=== PATIENT | female | born 1960 | race Caucasian/White ===

== ENCOUNTER 2019-09-15 23:59 | Emergency (ER) | payer BC, OTHER ==
[~2019-09-15] VITALS: Ht 172.7 cm; Wt 109.0 kg
[2019-09-16 00:03] VITALS: BP 123/77
[2019-09-16] MEDS ORDERED: AZITHROMYCIN 250 MG TABLET ONE (00:22)
[2019-09-16] MEDS ORDERED: AZITHROMYCIN 500 MG TABLET PO ONE (00:30)
== END 2019-09-16 00:47 | disposition home or self-care (01) ==
LOC: ED 09-16 00:40
DX: M94.0 Chondrocostal junction syndrome [Tietze] (principal); J40 Bronchitis, not specified as acute or chronic; J45.909 Unspecified asthma, uncomplicated
CPT/HCPCS: 71045; 93005; 99283; J7512

== ENCOUNTER 2019-11-28 13:01 | Outpatient (CLI) | payer BC | END 2019-11-28 23:59 | disposition home or self-care (01) | LOC: CFH 13:01 | PROVIDERS: ATTEND Family Medicine | DX: Z87.898 Personal history of other specified conditions (principal); N63.20 Unspecified lump in the left breast, unspecified quadrant | CPT/HCPCS: 76641; 77066; G0279 ==